=== PATIENT | male | born 1995 | race Caucasian/White ===

== ENCOUNTER → 2018-05-05 05:35 | Day surgery (SDC) | payer BC ==
[~2018-05-05 05:35] MED LIST: Buffered Lidocaine 1% SYRIN* 1 ML/SYRINGE INTRADERM ONE; Bupivacaine 0.5%* 50 ML VIAL ONE; Clindamycin 900 MG/D5W BAG(*) 900 MG/50 ML BAG IVPB ONE; DiMENhydriNATE IV* 50 MG/ML VIAL IV PUSH PRN; Famotidine TAB* 20 MG ONE; Famotidine TAB* 20 MG PO ONE; HYDROcodone/ACETAMIN 5-325 MG* 1 TAB PO PRN; Ketorolac INJ* 30 MG/ML 1 ML VIAL IV PRN; Lactated Ringers 1000 ML Bag* 1,000 ML IV SCH; Lidocaine 1% INJ* 10 MG/ML 30 ML SDV ONE; Lidocaine 2% PF * 5 ML VIAL ONE; Midazolam* 1 MG/ML 5 ML VIAL (5 MG) ONE; Naloxone* 0.4 MG/ML 1 ML VIAL IV PRN; Ondansetron INJ* 2 MG/ML VIAL IV PRN; Propofol* 10 MG/ML 20 ML BTL ONE; fentaNYL* 50 MCG/ML 2 ML VIAL (100 MCG VIAL) IV PRN; fentaNYL* 50 MCG/ML 2 ML VIAL (100 MCG VIAL) ONE; oxyCODONE/Acetamin 5/325 MG* TAB PO PRN
[2018-05-05 08:43] VITALS: BP 132/70
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
== END | disposition home or self-care (01) ==
LOC: OR 05:35
PROVIDERS: ATTEND Orthopaedic Surgery
DX: S61.243A Puncture wound with foreign body of left middle finger without damage to nail, initial encounter (principal); W45.8XXA Other foreign body or object entering through skin, initial encounter; Y93.89 Activity, other specified; Y92.9 Unspecified place or not applicable; Z72.0 Tobacco use; K21.9 Gastro-esophageal reflux disease without esophagitis; Z68.43 Body mass index [BMI] 50.0-59.9, adult
CPT/HCPCS: 76000; 88300; A9270-GY; J2250; J2704; J3010

== ENCOUNTER 2022-04-10 01:34 | Inpatient (IN) ==
[2022-04-10 02:44] LABS: Hematocrit 20 % (42-52); Hemoglobin 6.6 g/dL (14.0-18.0); Mean Corpuscular HGB Conc 34 g/dL (31-36); Mean Corpuscular Hemoglobin 33 pg (27-31); Mean Corpuscular Volume 98 fL (80-94); Platelet Count 230 10^3/uL (150-450); Red Blood Count 2.01 10^6 /uL (4.18-5.48); Red Cell Distribution Width 21 % (10-15); White Blood Count 9.4 10^3/uL (3.5-10.8)
[2022-04-10 02:49] LABS: INR 1.17 (0.88-1.18)
[2022-04-10 03:17] LABS: Polychromasia 2+
[2022-04-10 03:18] LABS: Macrocytosis 2+; Tear Drop Cells 1+
[2022-04-10 03:19] LABS: Basophilic Stippling 2+
[2022-04-10 03:21] LABS: RBC Morphology Normal (Normal)
[2022-04-10 03:22] LABS: ABS Eosinophils 0.1 10^3/ul (0-0.6); ABS Lymphocytes 1.1 10^3/ul (1.0-4.8); ABS Monocytes 0.4 10^3/ul (0-0.8); ABS Neutrophils 7.7 10^3/ul (1.5-7.7); Eosinophil % 1.5 %; Lymphocyte % 11.9 %; Nucleated Red Blood Cells % 0.3
[2022-04-10 03:34] LABS: Albumin 4.4 g/dL (3.2-5.2); Calcium 8.6 mg/dL (8.6-10.3); Potassium 4.2 mmol/L (3.5-5.0); Total Bilirubin 6.9 mg/dL (0.2-1.0)
[2022-04-10 03:40] LABS: Albumin/Globulin Ratio 1.9 (1-3); Globulin 2.3 g/dL (2-4); Total Protein 6.7 g/dL (6.4-8.9); eGFR CKD-EPI 96.5 (>60)
[2022-04-10] MEDS ORDERED: Iohexol 350 (CONTRAST) 500 ML MDV IV ONE (03:51)
[2022-04-10 04:04] LABS: High Sensitivity Troponin 1 Hr 253 pg/mL (<20)
[2022-04-10 05:51] LABS: Urine Appearance Clear; Urine Bilirubin Negative (Negative); Urine Blood Negative (Negative); Urine Color Amber; Urine Glucose Negative (Negative); Urine Ketones Negative (Negative); Urine Nitrite Negative (Negative); Urine Protein Negative (Negative); Urine Specific Gravity 1.028 (1.002-1.030); Urine Urobilinogen Negative (Negative)
[2022-04-10 06:44] LABS: Direct Bilirubin 0.6 mg/dL (0.03-0.18)
[2022-04-10 06:48] LABS: Corrected Retic Count 6.4 % (0.5-1.5); Hematocrit for Retic CNT 19 % (42-52); Immature Retic Fraction 0.77
[2022-04-10 07:21] LABS: Ferritin 687.6 ng/mL (24-336)
[2022-04-10 07:25] LABS: Folate 6.14 ng/mL (5.90-24.80)
[2022-04-10] MEDS ORDERED: Meperidine 50 mg/ml SYRINGE 1 ml IV PRN (09:10)
[2022-04-10] MEDS ORDERED: methylPREDNISolone SOD SUCC 125 mg 2 ML VIAL IV PRN (09:10)
[2022-04-10] MEDS ORDERED: methylPREDNISolone SOD SUCC 125 mg 2 ML VIAL IM SCH (10:00)
[2022-04-10] MEDS ORDERED: riTUXimab-ABBS 10 MG/ML 10 ML VIAL IVPB SCH (10:00)
[2022-04-10] MEDS ORDERED: Sulfur Hexaflouride MICROSPHR 25 MG VIAL ONE (10:38)
[2022-04-10] MEDS: methylPREDNISolone SOD SUCC 125 mg 2 ML VIAL IV SCH ×2 (10:50→20:58)
[2022-04-10 10:58] LABS: Corrected Retic Count 6.5 % (0.5-1.5); Hematocrit for Retic CNT 18 % (42-52); Immature Retic Fraction 0.75; RBC Retic Count 1.84 10^6/uL (4.18-5.48)
[2022-04-10] MEDS ORDERED: Al Hydrox/Mg Hydrox/Simet LIQ 30 ML UDC PO PRN (11:53)
[2022-04-10 12:08] LABS: HIV 4th Generation Nonreactive (Nonreactive)
[2022-04-11 06:33] LABS: ABS Monocytes 0.8 10^3/ul (0-0.8); ABS Nucleated RBC 0.1 10^3/ul; Corrected Retic Count 7.2 % (0.5-1.5); Eosinophil % 0.1 %; Hematocrit 20 % (42-52); Hematocrit for Retic CNT 20 % (42-52); Hemoglobin 6.5 g/dL (14.0-18.0); Immature Retic Fraction 0.77; Lymphocyte % 5.5 %; Mean Corpuscular HGB Conc 32 g/dL (31-36); Mean Corpuscular Hemoglobin 33 pg (27-31); Mean Corpuscular Volume 101 fL (80-94); Mean Platelet Volume 7.5 fL (7.4-10.4); Nucleated Red Blood Cells % 0.3; Platelet Count 252 10^3/uL (150-450); Red Cell Distribution Width 23 % (10-15); White Blood Count 18.8 10^3/uL (3.5-10.8)
[2022-04-11 06:54] LABS: Albumin 4.5 g/dL (3.2-5.2); Calcium 9.2 mg/dL (8.6-10.3); Globulin 2.2 g/dL (2-4); Potassium 4.5 mmol/L (3.5-5.0); Total Bilirubin 5.1 mg/dL (0.2-1.0); Total Protein 6.7 g/dL (6.4-8.9)
[2022-04-11] MEDS: methylPREDNISolone SOD SUCC 125 mg 2 ML VIAL IV SCH ×2 (08:25→21:49)
[2022-04-11 11:48] LABS: Immunoglobulin G 1100 mg/dL (767 - 1590); Immunoglobulin M 50 mg/dL (37 - 286)
[2022-04-12 05:57] LABS: ABS Lymphocytes 1.9 10^3/ul (1.0-4.8); ABS Monocytes 0.7 10^3/ul (0-0.8); ABS Neutrophils 18.4 10^3/ul (1.5-7.7); ABS Nucleated RBC 0.1 10^3/ul; Hematocrit 22 % (42-52); Hematocrit for Retic CNT 22 % (42-52); Hemoglobin 7.2 g/dL (14.0-18.0); Lymphocyte % 9.1 %; Mean Corpuscular HGB Conc 33 g/dL (31-36); Mean Corpuscular Hemoglobin 33 pg (27-31); Mean Corpuscular Volume 101 fL (80-94); Mean Platelet Volume 7.4 fL (7.4-10.4); Nucleated Red Blood Cells % 0.6; Platelet Count 244 10^3/uL (150-450); RBC Retic Count 2.16 10^6/uL (4.18-5.48); Red Blood Count 2.16 10^6 /uL (4.18-5.48); Red Cell Distribution Width 23 % (10-15)
[2022-04-12 06:08] LABS: Corrected Retic Count 8.5 % (0.5-1.5); Immature Retic Fraction 0.77
[2022-04-12] MEDS: methylPREDNISolone SOD SUCC 125 mg 2 ML VIAL IV SCH ×2 (08:41→20:40)
[2022-04-12 11:56] LABS: Albumin 4.5 g/dL (3.2-5.2); Calcium 9.1 mg/dL (8.6-10.3); Globulin 2.2 g/dL (2-4); Potassium 4.5 mmol/L (3.5-5.0); Total Bilirubin 4.4 mg/dL (0.2-1.0); Total Protein 6.7 g/dL (6.4-8.9); eGFR CKD-EPI 107.1 (>60)
[2022-04-13 07:01] LABS: Immature Retic Fraction 0.76; RBC Retic Count 2.29 10^6/uL (4.18-5.48); Red Blood Count 2.29 10^6 /uL (4.18-5.48)
[2022-04-13 07:24] LABS: Corrected Retic Count 9.2 % (0.5-1.5); Hematocrit 24 % (42-52); Hematocrit for Retic CNT 24 % (42-52); Hemoglobin 7.7 g/dL (14.0-18.0); Mean Corpuscular HGB Conc 33 g/dL (31-36); Mean Corpuscular Hemoglobin 33 pg (27-31); Mean Corpuscular Volume 101 fL (80-94); Mean Platelet Volume 7.4 fL (7.4-10.4); Platelet Count 254 10^3/uL (150-450); Red Cell Distribution Width 24 % (10-15); White Blood Count 17.1 10^3/uL (3.5-10.8)
[2022-04-13 07:51] LABS: Polychromasia 3+
[2022-04-13 07:52] LABS: Anisocytosis 3+; Macrocytosis 1+; Tear Drop Cells 1+
[2022-04-13 07:53] LABS: Basophilic Stippling 1+
[2022-04-13 07:54] LABS: ABS Lymphocytes 1.9 10^3/ul (1.0-4.8); ABS Monocytes 0.9 10^3/ul (0-0.8); ABS Neutrophils 14.2 10^3/ul (1.5-7.7); ABS Nucleated RBC 0.6 10^3/ul; Eosinophil % 0.1 %; Lymphocyte % 11.2 %; Nucleated Red Blood Cells % 3.5
[2022-04-13] MEDS: methylPREDNISolone SOD SUCC 125 mg 2 ML VIAL IV SCH ×2 (09:05→20:52)
[2022-04-13 12:14] LABS: Albumin 4.5 g/dL (3.2-5.2); Calcium 9.1 mg/dL (8.6-10.3); Globulin 2.2 g/dL (2-4); Potassium 4.4 mmol/L (3.5-5.0); Total Bilirubin 4.3 mg/dL (0.2-1.0); Total Protein 6.7 g/dL (6.4-8.9); eGFR CKD-EPI 100.9 (>60)
[2022-04-14 06:16] LABS: Immature Retic Fraction 0.74; RBC Retic Count 2.34 10^6/uL (4.18-5.48); Red Blood Count 2.34 10^6 /uL (4.18-5.48)
[2022-04-14 06:35] LABS: Magnesium 2.4 mg/dL (1.9-2.7)
[2022-04-14 06:46] LABS: ABS Lymphocytes 1.6 10^3/ul (1.0-4.8); ABS Monocytes 0.8 10^3/ul (0-0.8); ABS Neutrophils 12.4 10^3/ul (1.5-7.7); ABS Nucleated RBC 0.1 10^3/ul; Corrected Retic Count 9.7 % (0.5-1.5); Hematocrit 25 % (42-52); Hematocrit for Retic CNT 25 % (42-52); Mean Corpuscular HGB Conc 33 g/dL (31-36); Mean Corpuscular Hemoglobin 33 pg (27-31); Mean Corpuscular Volume 102 fL (80-94); Mean Platelet Volume 7.4 fL (7.4-10.4); Nucleated Red Blood Cells % 0.5; Platelet Count 244 10^3/uL (150-450); Red Cell Distribution Width 24 % (10-15); White Blood Count 14.8 10^3/uL (3.5-10.8)
[2022-04-14] MEDS: methylPREDNISolone SOD SUCC 125 mg 2 ML VIAL IV SCH ×2 (09:01→21:31)
[2022-04-14 11:59] LABS: Albumin 4.5 g/dL (3.2-5.2); Calcium 9.1 mg/dL (8.6-10.3); Potassium 4.2 mmol/L (3.5-5.0); Total Bilirubin 4.8 mg/dL (0.2-1.0)
[2022-04-14 12:04] LABS: Albumin/Globulin Ratio 2.1 (1-3); Globulin 2.1 g/dL (2-4); Total Protein 6.6 g/dL (6.4-8.9); eGFR CKD-EPI 97.5 (>60)
[2022-04-14 13:42] LABS: Hepatitis B Surface Antigen Nonreactive (Nonreactive)
[2022-04-14 13:59] LABS: Hepatitis C Antibody Negative (Negative)
[2022-04-15 05:54] LABS: ABS Lymphocytes 1.5 10^3/ul (1.0-4.8); ABS Monocytes 0.8 10^3/ul (0-0.8); ABS Neutrophils 11.8 10^3/ul (1.5-7.7); ABS Nucleated RBC 0.1 10^3/ul; Corrected Retic Count 10.4 % (0.5-1.5); Hematocrit 26 % (42-52); Hematocrit for Retic CNT 26 % (42-52); Hemoglobin 8.2 g/dL (14.0-18.0); Immature Retic Fraction 0.74; Lymphocyte % 10.8 %; Mean Corpuscular HGB Conc 32 g/dL (31-36); Mean Corpuscular Hemoglobin 33 pg (27-31); Mean Corpuscular Volume 102 fL (80-94); Mean Platelet Volume 7.3 fL (7.4-10.4); Nucleated Red Blood Cells % 0.5; Platelet Count 246 10^3/uL (150-450); RBC Retic Count 2.51 10^6/uL (4.18-5.48); Red Blood Count 2.51 10^6 /uL (4.18-5.48); Red Cell Distribution Width 25 % (10-15); White Blood Count 14.1 10^3/uL (3.5-10.8)
[2022-04-15] MEDS: methylPREDNISolone SOD SUCC 125 mg 2 ML VIAL IV SCH (08:26)
[2022-04-15 09:57] LABS: Albumin 3.6 g/dL (3.4-4.7); Albumin/Globulin Ratio 1.23; Gamma Globulin 1.2 g/dL (0.6-1.6); Total Protein(PEP) 6.6 g/dL (6.3 - 7.9)
[2022-04-15 11:06] VITALS: BP 152/80
[2022-04-15 14:04] LABS: Albumin 4.2 g/dL (3.2-5.2); Calcium 8.7 mg/dL (8.6-10.3); Potassium 4.6 mmol/L (3.5-5.0); Total Bilirubin 3.9 mg/dL (0.2-1.0)
[2022-04-15 14:10] LABS: Globulin 2.1 g/dL (2-4); Total Protein 6.3 g/dL (6.4-8.9); eGFR CKD-EPI 100.9 (>60)
== END 2022-04-15 13:45 | disposition home or self-care (01) | DRG 660 ==
LOC: EDHOLD 01:34 → ED 01:34 → SUATTDRO 06:01 → EDHOLD 10:00 → SSU 11:31 → SUATTDRO 04-11 10:46
PROVIDERS: ADMIT Student in an Organized Health Care Education/Training Program; ATTEND Internal Medicine